=== PATIENT | male | born 1990 | race Caucasian/White ===

== ENCOUNTER → 2016-09-26 | Outpatient (CLI) | payer BC ==
[~2016-09-26] MED LIST: CIPR1TAB10 PO; HYDR-5688 PO; LRT5 PO; METR-163 PO
[2016-09-26 17:31] LABS: LYME DISEASE AB IGG NEG (NEG); LYME DISEASE AB IGM NEG (NEG)
== END | disposition home or self-care (01) ==
LOC: C.LABBC 14:54
PROVIDERS: ATTEND Physician Assistant Medical
DX: T14.8 Other injury of unspecified body region (principal); W57.XXXA Bitten or stung by nonvenomous insect and other nonvenomous arthropods, initial encounter

== ENCOUNTER → 2016-10-24 | Outpatient (CLI) | payer BC ==
[~2016-10-24] MED LIST changes: -CIPR1TAB10 PO; -HYDR-5688 PO; -METR-163 PO
--- NOTE | 2016-10-24 16:35 | DIAGNOSTIC IMAGING REPORT ---
LEFT LOWER EXT JOINT WITHOUT MRI left knee CLINICAL HISTORY: LEFT KNEE PAIN R/O MENISCUS TEAR pain TECHNIQUE: Multi axial MRI acquisition COMPARISON STUDY: None FINDINGS: Unremarkable signal characteristics the osseous structures. No bone marrow replacing process. Anterior and posterior cruciate ligaments are intact. Medial and lateral menisci are unremarkable. The articular services of all major joint compartments are within normal limits. The patellofemoral joint is within normal limits. All major ligamentous and tendinous structures are intact IMPRESSION: Negative study The above report was generated using voice recognition software. It may contain grammatical, syntax or spelling errors. Electronically signed by: Patrick Yousif M.D. 10/24/2016 4:34 PM Dictated Date/Time: 10/24/2016 4:30 PM
== END | disposition home or self-care (01) ==
LOC: C.MRIBC 15:08
PROVIDERS: ATTEND Orthopaedic Surgery
DX: M25.562 Pain in left knee (principal)

== ENCOUNTER 2017-02-03 03:13 | Emergency (ER) | payer BC ==
[~2017-02-03] VITALS: Ht 170.2 cm; Wt 81.7 kg
[2017-02-03 03:19] VITALS: Ht 170.2 cm; Wt 81.7 kg
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
[2017-02-03] MEDS ORDERED: ALUMINUM/MAGNESIUM SUSP 30 ML UDC PO STA (04:26)
[2017-02-03] MEDS ORDERED: FAMOTIDINE 20MG/102 ML D5W IV STA (04:26)
[2017-02-03 04:39] LABS: BASO % 0.3 %; BASO ABS # 0.03 K/uL (0-0.2); COMPLETE YES; EOS % 1.9 %; HEMATOCRIT 41.8 % (42-52); IG% 0.2 %; LYMPH ABS # 2.19 K/uL (1.2-3.4); MEAN CELL VOLUME 84.3 fL (80-100); MEAN CORPUSCULAR HGB CONC 35.6 g/dl (32-36); NEUT % 69.6 %; PLATELET COUNT 238 K/uL (130-400); RED BLOOD COUNT 4.96 M/uL (4.7-6.1); WHITE BLOOD COUNT 10.44 K/uL (4.8-10.8)
[2017-02-03 04:50] LABS: ALB/GLOB RATIO 1.3 (0.9-2); BUN/CREATININE RATIO 13.3 (10-20); CALCIUM 9.3 mg/dl (8.5-10.1); CREATININE 1.04 mg/dl (0.60-1.40); POTASSIUM 3.8 mmol/L (3.5-5.1)
[2017-02-03] MEDS ORDERED: SUCRALFATE 1 GM/10 ML UDC PO STA (05:48)
--- NOTE | 2017-02-03 06:40 | DIAGNOSTIC IMAGING REPORT ---
ABDOMEN 2VIEW W/PA CHEST RTN HISTORY: 26 years-old Male epigastric pain acute epigastric abdominal pain COMPARISON: None available TECHNIQUE: Frontal view of the chest with erect and supine views of the abdomen FINDINGS: The cardiac mediastinal and hilar silhouettes are within normal limits. No pneumothorax, pleural effusion or focal airspace consolidation. Bones of the chest are grossly intact. No pneumoperitoneum on the upright projection. Bowel gas pattern is nonobstructive. No urolith or fracture. There are 6 lumbar type vertebral segments. Probable phleboliths of the pelvis. IMPRESSION: 1. No acute cardiopulmonary process. 2. Nonobstructive bowel gas pattern without pneumoperitoneum. The above report was generated using voice recognition software. It may contain grammatical, syntax or spelling errors. Electronically signed by: Reji Brar M.D. 02/03/2017 6:38 AM Dictated Date/Time: 02/03/2017 6:36 AM
--- NOTE | 2017-02-03 06:45 | DIAGNOSTIC IMAGING REPORT ---
BILIARY ULTRASOUND CLINICAL HISTORY: epigastric pain COMPARISON STUDY: No previous studies for comparison. FINDINGS: The pancreas appears sonographically normal. No focal hepatic masses are visualized. There is borderline increase in hepatic echogenicity. The gallbladder appears sonographically normal. No stones are identified. The common bile duct measured between 4 and 6 mm. There is no right-sided hydronephrosis. IMPRESSION: Borderline increase in hepatic echogenicity. Otherwise normal biliary ultrasound. Ultrasonographically normal gallbladder. No ductal dilatation. Electronically signed by: Bautista Aparicio M.D. 02/03/2017 6:43 AM Dictated Date/Time: 02/03/2017 6:43 AM
[2017-02-03] MEDS ORDERED: KETOROLAC TROMETHAMINE 30 MG/ML VIAL IV STA (06:58)
[2017-02-03 07:18] VITALS: BP 126/68; PULSE 54; TEMP 36.8; O2SAT 97
[2017-02-04] MEDS ORDERED: CIPR1TAB10 PO (11:42)
[2017-02-04] MEDS ORDERED: HYDR-5688 PO (11:42)
[2017-02-04] MEDS ORDERED: METR-163 PO (11:42)
== END 2017-02-03 07:19 | disposition home or self-care (01) ==
LOC: C.EDB 03:14 → C.EDA 07:19
DX: R10.13 Epigastric pain (principal); R19.7 Diarrhea, unspecified

== ENCOUNTER 2017-02-03 20:01 | Observation (INO) | payer BC ==
[~2017-02-03] VITALS: Ht 170.2 cm; Wt 79.0 kg
[2017-02-03] MEDS ORDERED: MoRPHine SULFATE 4 MG/ML 1 ML CARP\\VIAL IV STA (20:13)
[2017-02-03] MEDS ORDERED: ONDANSETRON INJ 2 MG/ML 2 ML VIAL IV STA (20:13)
[2017-02-03] MEDS ORDERED: OPTIRAY 320 IV PRN (20:30)
[2017-02-03 20:44] LABS: MANUAL MICROSCOPIC REQUIRED? NO; REVIEW REQ? NO; URINE APPEARANCE CLOUDY (CLEAR); URINE COLOR DK YELLOW; URINE NITRITE NEG (NEG); URINE PH 5.5 (4.5-7.5); URINE SPECIFIC GRAVITY 1.023 (1.000-1.030); UROBILINOGEN NEG (NEG); ZZUR CULT IF INDIC CLEAN CATCH NO
[2017-02-03 20:46] LABS: URINE BILIRUBIN NEG (NEG)
[2017-02-03 20:54] LABS: BUN/CREATININE RATIO 8.8 (10-20); CREATININE 1.28 mg/dl (0.60-1.40); POTASSIUM 3.7 mmol/L (3.5-5.1)
--- NOTE | 2017-02-03 21:05 | DIAGNOSTIC IMAGING REPORT ---
ABDOMEN AND PELVIS CT WITH IV CONTRAST CT DOSE: 322.78 mGy.cm HISTORY: Right lower quadrant abdominal pain. TECHNIQUE: Multiaxial CT images of the abdomen and pelvis were performed following the use of intravenous contrast. A dose lowering technique was utilized adhering to the principles of ALARA. COMPARISON STUDY: None. FINDINGS: The tip of the appendix is distended up to 11 mm and there is periappendiceal fat stranding consistent with acute appendicitis. There are two appendicoliths within the appendix. No perforation or abscess identified at this time. The distended appendix is anterior to the right psoas muscle best seen on images 47 through 54. The lung bases are clear. The liver, gallbladder, pancreas, spleen, adrenal glands, and kidneys are unremarkable. No hydronephrosis. No retroperitoneal lymphadenopathy. Bladder is not well-distended but appears unremarkable. No evidence for bowel obstruction. IMPRESSION: Acute appendicitis. Electronically signed by: Douglas Benjamin M.D. 02/03/2017 9:04 PM Dictated Date/Time: 02/03/2017 8:59 PM
[2017-02-03] MEDS ORDERED: CEFOXITIN 2000MG/60 ML D5W IV STA (21:07)
[2017-02-03] MEDS ORDERED: SODIUM CHLORIDE 0.9% 1000ML 1,000 ML IV STA (21:11)
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
[2017-02-03 21:25] LABS: BASO % 0.2 %; BASO ABS # 0.01 K/uL (0-0.2); COMPLETE YES; EOS % 0.9 %; HEMATOCRIT 43.6 % (42-52); IG% 0.2 %; LYMPH % 12.1 %; LYMPH ABS # 0.53 K/uL (1.2-3.4); MEAN CELL VOLUME 85.8 fL (80-100); MEAN CORPUSCULAR HEMOGLOBIN 29.7 pg (25-34); MEAN CORPUSCULAR HGB CONC 34.6 g/dl (32-36); MEAN PLATELET VOLUME 10.2 fL (7.4-10.4); MONO % 0.5 %; NEUT % 86.1 %; PLATELET COUNT 181 K/uL (130-400); RED BLOOD COUNT 5.08 M/uL (4.7-6.1); WHITE BLOOD COUNT 4.39 K/uL (4.8-10.8)
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
[2017-02-03 22:19] VITALS: O2SAT 96
[2017-02-03] MEDS ORDERED: MIDAZOLAM HCL 1 MG/ML 2ML VIAL ONE (22:22)
[2017-02-03] MEDS ORDERED: FENTANYL CITRATE INJ 50 MCG/1 ML 2 ML VIAL ONE ×2 (22:22→23:36)
[2017-02-03] MEDS ORDERED: HYDROmorphone INJ 2 MG/ML SYR/VIAL IV PRN (22:30)
[2017-02-03] MEDS ORDERED: ONDANSETRON INJ 2 MG/ML 2 ML VIAL IV PRN (22:30)
[2017-02-03] MEDS ORDERED: LABETALOL HCL IV 5 MG/ML 20ML IV PRN (22:30)
[2017-02-03] MEDS ORDERED: KETOROLAC TROMETHAMINE 30 MG/ML VIAL IV. PRN (22:30)
[2017-02-03] MEDS ORDERED: PROMETHAZINE HCL INJ 12.5 MG in SODIUM CHLORIDE 0.9% 50ML 50 ML IV PRN (22:30)
[2017-02-03] MEDS ORDERED: ATROPINE SULFATE 0.1 MG/ML 5ML SYR IV PRN (22:30)
[2017-02-03] MEDS ORDERED: METOCLOPRAMIDE HCL INJ 5 MG/ML 2 ML VIAL ONE (22:59)
[2017-02-03] MEDS ORDERED: ROCURONIUM BROMIDE 10 MG/ML 5 ML VIAL IV ONE ×2 (22:59→23:36)
[2017-02-03] MEDS ORDERED: NEOSTIGMINE METHYLSULFATE 5 MG/5 ML SYR ONE (22:59)
[2017-02-03] MEDS ORDERED: GLYCOPYRROLATE INJ 0.2 MG/ML VIAL ONE (22:59)
[2017-02-03] MEDS ORDERED: ONDANSETRON INJ 2 MG/ML 2 ML VIAL ONE (22:59)
[2017-02-03] MEDS ORDERED: PROPOFOL IV EMULSION 10 MG/ML 20 ML VIAL IV ONE (22:59)
[2017-02-03] MEDS ORDERED: BUPIVACAINE/EPINEPHRINE 0.25% 1:200,000 30 ML VIAL ONE (23:06)
[2017-02-03] MEDS ORDERED: IV FLUIDS COMPLETED PRN (23:45)
[2017-02-04] VITALS (8 sets, daily range): BP systolic 96–112; BP diastolic 55–65; PULSE 62–118; TEMP 36.7–39.3; O2SAT 91–98; Ht 170.2 cm; Wt 79.0 kg
[2017-02-04] MEDS ORDERED: MoRPHine SULFATE 2 MG/ML CARP IV PRN
[2017-02-04] MEDS ORDERED: ONDANSETRON INJ 2 MG/ML 2 ML VIAL IV PRN
[2017-02-04] MEDS ORDERED: MoRPHine SULFATE 4 MG/ML 1 ML CARP\\VIAL IV PRN
[2017-02-04] MEDS ORDERED: HYDROCODONE/ACETAMOPHEN 5/325MG TAB PO PRN ×2
[2017-02-04] MEDS ORDERED: KETOROLAC TROMETHAMINE 30 MG/ML VIAL IV. PRN
--- NOTE | 2017-02-04 00:02 | [facility] Operative Report ---
Operative Report Operative Date Feb 03, 2017. Pre-Operative Diagnosis Acute Appendicitis Post-Operative Diagnosis acute appendicitis Procedure(s) Performed Laparoscopic Appendectomy Surgeon Dr. Rajan Tomato Paste Maker Surgeon(s) none Estimated Blood Loss 5ML Findings acute appendicitis Specimens Permanent Specimens A. Appendix Anesthesia get Complication(s) None Disposition Recovery Room / PACU Description of Procedure After informed consent was obtained the patient was taken to the operating room and placed in a supine position. After successful intubation the left arm was tucked. We tried to place a Peña catheter but did not obtain any urine so we removed the catheter. We then shaved the abdomen and sterilely prepped and draped in usual fashion. A periumbilical incision was made with an 11 blade scalpel and carried down through the soft tissue using electrocautery. The anterior rectus fascia was opened using electrocautery and 2 #0 Vicryl stay sutures were placed. Peritoneum was entered using blunt finger penetration and a finger sweep was performed. A 12 mm Ricketts trocar was placed and the abdomen was insufflated to 18 mmHg. The laparoscope was inserted and the abdomen was examined 360. No gross abnormalities were seen. A suprapubic 5 mm port and a left lower quadrant 12 mm port were placed under direct vision. The patient was placed in a Trendelenburg position and slightly airplaned to the left. As we examined the right lower quadrant we found that the appendix was retrocecal. We able to roll the cecum superiorly and identified what appeared to be an infarcted appendix. We able to grab it at its base and elevate it and using primarily blunt dissection free it up from surrounding structures. The base of the appendix looked normal. I was able used a [place] dissector to create a small window in the mesentery of the appendix. A SAKINA Brown cartridge stapler was then used to transect the appendix at its base with the cecum. I used a second firing of the same stapler to take down the mesentery of the appendix. It was placed into an Endo Catch bag. The staple lines appeared to be intact and there was adequate hemostasis. I thoroughly irrigated the pelvis and right lower quadrant. I ran the small bowel backwards from the terminal ileum for about 8 feet all of which was normal. I looked around the abdomen 1 final time again showing no other abnormalities other than a small right inguinal hernia with no incarceration. We remove the appendix and all the trochars and desufflated the abdomen. The fascia of the camera port as well as the left lower quadrant fascia was closed using 0 Vicryl in [id number] fashion. The wounds were all irrigated and closed using 4-0 Monocryl. Marcaine was injected around the incisions for postoperative analgesia and skin glue used as a dressing. The patient was awakened extubated and transferred to recovery in stable condition I attest to the content of the Intraoperative Record and any orders documented therein. Any exceptions are noted below.
--- NOTE | 2017-02-04 00:42 | Anesthesiology Progress Note ---
Anesthesia Post Op Note Date & Time Feb 04, 2017 at 00:41 Vital Signs Pain Intensity: 0 Vital Signs Past 12 Hours Date Time Temp Pulse Resp B/P (MAP) Pulse Ox O2 Delivery O2 Flow Rate FiO2 02/04/17 00:19 109 16 100 Oxymask 3 02/04/17 00:19 109 16 02/04/17 00:16 151/81 (109) 02/04/17 00:14 110 14 02/04/17 00:14 109 14 100 Oxymask 6 02/04/17 00:11 124/92 (97) 02/04/17 00:09 121 16 100 Oxymask 8 02/04/17 00:09 115 18 02/04/17 00:06 140/79 (95) 02/04/17 00:04 106 20 02/04/17 00:04 106 18 99 02/04/17 00:01 137/92 (102) 02/03/17 23:59 117 16 137/79 (104) 93 02/03/17 23:59 115 18 02/03/17 23:56 38.2 123 32 137/79 94 Oxymask 9 02/03/17 22:19 110 20 133/66 96 Room Air 02/03/17 21:27 110 20 143/74 95 Room Air 02/03/17 21:26 110 20 142/75 96 Room Air 02/03/17 21:07 99 Room Air 02/03/17 20:58 112 02/03/17 20:04 38.2 65 20 117/76 99 Room Air Notes Mental Status: alert / awake / arousable, participated in evaluation Pt Amnestic to Procedure: Yes Nausea / Vomiting: adequately controlled Pain: adequately controlled Airway Patency, RR, SpO2: stable & adequate BP & HR: stable & adequate Hydration State: stable & adequate Anesthetic Complications: no major complications apparent
[2017-02-04] MEDS: IBUPROFEN 600 MG TAB PO PRN ×2 (01:06→13:44)
[2017-02-04] MEDS: LACTATED RINGER'S 1000ML 1,000 ML IV SCH ×2 (03:46→10:26)
[2017-02-04] MEDS ORDERED: CEFOXITIN IV 2,000 MG in DEXTROSE 5% 50ML 50 ML IV SCH (06:00)
[2017-02-04 06:48] LABS: HEMATOCRIT 38.3 % (42-52); MEAN CELL VOLUME 86.3 fL (80-100); MEAN CORPUSCULAR HEMOGLOBIN 29.3 pg (25-34); MEAN CORPUSCULAR HGB CONC 33.9 g/dl (32-36); MEAN PLATELET VOLUME 10.5 fL (7.4-10.4); PLATELET COUNT 150 K/uL (130-400); RED BLOOD COUNT 4.44 M/uL (4.7-6.1); WHITE BLOOD COUNT 12.83 K/uL (4.8-10.8)
[2017-02-04 07:20] LABS: BASO % 0.2 %; BASO ABS # 0.02 K/uL (0-0.2); COMPLETE YES; EOS % 0.1 %; IG% 1.6 %; LYMPH % 2.1 %; LYMPH ABS # 0.27 K/uL (1.2-3.4); MONO % 3.2 %; NEUT % 92.8 %; VACUOLIZATION 1+
[2017-02-04 07:21] LABS: BUN/CREATININE RATIO 5.5 (10-20); CALCIUM 8.4 mg/dl (8.5-10.1); CREATININE 1.93 mg/dl (0.60-1.40); POTASSIUM 3.8 mmol/L (3.5-5.1)
--- NOTE | 2017-02-04 11:23 | Surgery Progress Note ---
Surgery Progress Note Date of Service Feb 04, 2017. Subjective Post OP Day: 1 expected sorness but overall feeling well. lara liquids. pre-op pain gone. Objective Vital Signs: Date Time Temp Pulse Resp B/P (MAP) Pulse Ox O2 Delivery O2 Flow Rate FiO2 02/04/17 08:00 Room Air 02/04/17 07:41 36.7 62 16 98/55 (69) 98 Room Air 02/04/17 03:54 37.4 100 18 101/62 (75) 92 Room Air 02/04/17 02:50 37.5 109 16 96/58 (71) 91 Room Air 02/04/17 01:50 38.4 111 18 98/59 (72) 91 Room Air 02/04/17 01:20 39.3 118 19 96/56 (69) 92 Nasal Cannula 2.0 02/04/17 00:50 39.0 114 20 112/62 (79) 94 Nasal Cannula 2.0 02/04/17 00:50 Room Air 02/04/17 00:50 37.5 109 16 96/58 Room Air 02/04/17 00:50 Room Air 02/04/17 00:41 158/81 (94) 02/04/17 00:40 112 18 02/04/17 00:40 112 18 92 Nasal Cannula 2 02/04/17 00:36 39.3 154/86 (98) 02/04/17 00:35 114 16 02/04/17 00:35 114 16 92 02/04/17 00:32 131/109 (116) 02/04/17 00:30 124 18 92 Oxymask 3 02/04/17 00:30 123 18 02/04/17 00:26 146/89 (102) 02/04/17 00:25 111 16 02/04/17 00:25 109 16 99 Oxymask 3 02/04/17 00:21 141/82 (94) 02/04/17 00:20 110 18 02/04/17 00:20 38.7 109 18 100 02/04/17 00:19 109 16 100 Oxymask 3 02/04/17 00:19 109 16 02/04/17 00:16 151/81 (109) 02/04/17 00:14 110 14 02/04/17 00:14 109 14 100 Oxymask 6 02/04/17 00:11 124/92 (97) 02/04/17 00:09 121 16 100 Oxymask 8 02/04/17 00:09 115 18 02/04/17 00:06 140/79 (95) 02/04/17 00:04 106 20 02/04/17 00:04 106 18 99 02/04/17 00:01 137/92 (102) 02/03/17 23:59 117 16 137/79 (104) 93 02/03/17 23:59 115 18 02/03/17 23:56 38.2 123 32 137/79 94 Oxymask 9 02/03/17 22:19 110 20 133/66 96 Room Air 02/03/17 21:27 110 20 143/74 95 Room Air 02/03/17 21:26 110 20 142/75 96 Room Air 02/03/17 21:07 99 Room Air 02/03/17 20:58 112 02/03/17 20:04 38.2 65 20 117/76 99 Room Air General Appearance: no apparent distress Respiratory/Chest: no respiratory distress, no accessory muscle use Abdomen: non distended, soft Incision(s): clean, dry, intact Laboratory Results: Results Past 24 Hours Test 02/03/17 20:25 02/04/17 06:34 02/04/17 06:35 Range/Units White Blood Count 4.39 12.83 4.8-10.8 K/uL Red Blood Count 5.08 4.44 4.7-6.1 M/uL Hemoglobin 15.1 13.0 14.0-18.0 g/dL Hematocrit 43.6 38.3 42-52 % Mean Corpuscular Volume 85.8 86.3 80-100 fL Mean Corpuscular Hemoglobin 29.7 29.3 25-34 pg Mean Corpuscular Hemoglobin Concent 34.6 33.9 32-36 g/dl Platelet Count 181 150 130-400 K/uL Mean Platelet Volume 10.2 10.5 7.4-10.4 fL Neutrophils (%) (Auto) 86.1 92.8 % Lymphocytes (%) (Auto) 12.1 2.1 % Monocytes (%) (Auto) 0.5 3.2 % Eosinophils (%) (Auto) 0.9 0.1 % Basophils (%) (Auto) 0.2 0.2 % Neutrophils # (Auto) 3.78 11.91 1.4-6.5 K/uL Lymphocytes # (Auto) 0.53 0.27 1.2-3.4 K/uL Monocytes # (Auto) 0.02 0.41 0.11-0.59 K/uL Eosinophils # (Auto) 0.04 0.01 0-0.5 K/uL Basophils # (Auto) 0.01 0.02 0-0.2 K/uL RDW Standard Deviation 40.3 41.4 36.4-46.3 fL RDW Coefficient of Variation 12.7 13.1 11.5-14.5 % Immature Granulocyte % (Auto) 0.2 1.6 % Immature Granulocyte # (Auto) 0.01 0.21 0.00-0.02 K/uL Urine Color DK YELLOW Urine Appearance CLOUDY CLEAR Urine pH 5.5 4.5-7.5 Urine Specific Sutton 1.023 1.000-1.030 Urine Protein NEG NEG Urine Glucose (UA) NEG NEG Urine Ketones TRACE NEG Urine Occult Blood NEG NEG Urine Nitrite NEG NEG Urine Bilirubin NEG NEG Urine Urobilinogen NEG NEG Urine Leukocyte Esterase TRACE NEG Urine WBC (Auto) 1-5 0-5 /hpf Urine RBC (Auto) 0-4 0-4 /hpf Urine Hyaline Casts (Auto) 1-5 0-5 /lpf Urine Epithelial Cells (Auto) 5-10 0-5 /lpf Urine Bacteria (Auto) NEG NEG Sodium Level 140 139 136-145 mmol/L Potassium Level 3.7 3.8 3.5-5.1 mmol/L Chloride Level 107 108 98-107 mmol/L Carbon Dioxide Level 26 24 21-32 mmol/L Anion Gap 7.0 7.0 3-11 mmol/L Blood Urea Nitrogen 11 11 7-18 mg/dl Creatinine 1.28 1.93 0.60-1.40 mg/dl Est Creatinine Clear Calc Drug Dose 82.5 54.7 ml/min Estimated GFR () 89.6 54.5 Estimated GFR (Non- 77.3 47.0 BUN/Creatinine Ratio 8.8 5.5 10-20 Random Glucose 89 136 70-99 mg/dl Calcium Level 9.0 8.4 8.5-10.1 mg/dl Total Bilirubin 1.2 0.2-1 mg/dl Direct Bilirubin 0.3 0-0.2 mg/dl Aspartate Amino Transf (AST/SGOT) 19 15-37 U/L Alanine Aminotransferase (ALT/SGPT) 41 12-78 U/L Alkaline Phosphatase 80 45-117 U/L Total Protein 7.3 6.4-8.2 gm/dl Albumin 4.0 3.4-5.0 gm/dl Toxic Vacuolation 1+ Microbiology Results 02/03/17 Blood Culture, Received Pending 02/03/17 Blood Culture, Received Pending Assessment & Plan POD 1 doing fairly well will get regular lunch and re-eval after lunch for possible d/c later today home on antibiotics instructions given.
[2017-02-04] MEDS ORDERED: CIPR1TAB10 PO (11:42)
[2017-02-04] MEDS ORDERED: HYDR-5688 PO (11:42)
[2017-02-04] MEDS ORDERED: METR-163 PO (11:42)
--- NOTE | 2017-02-04 11:44 | Discharge Instructions ---
Discharge Instructions Date of Service Feb 04, 2017. Admission Reason for Admission: Appendicitis, Acute Discharge Discharge Diagnosis / Problem: Appendicitis, Acute Discharge Goals Goal(s): Decrease discomfort, Improve function Activity Recommendations Activity Limitations: as noted below Lifting Limitations: no more than 10 pounds Exercise/Sports Limitations: until after follow-up appointment May Resume Sexual Activity: after follow-up appointment Shower/Bathe: tomorrow Driving or Machine Use: resume 1 day after discharge . Instructions / Follow-Up Instructions / Follow-Up Please follow-up with Dr. Rajan in the office in 1-2 weeks. Please call the office at [phone] to make an appointment. Please call the office with any questions or concerns. Current Hospital Diet Patient's current hospital diet: Regular Diet Discharge Diet Recommended Diet: Regular Diet Procedures Procedures Performed: Laparoscopic Appendectomy Pending Studies Studies pending at discharge: yes List of pending studies: Pathology report. Medical Emergencies . Who to Call and When: Medical Emergencies: If at any time you feel your situation is an emergency, please call 911 immediately. . Non-Emergent Contact Non-Emergency issues call your: Primary Care Provider, Surgeon Call Non-Emergent contact if: temperature is above 101.5, your pain is not controlled, wound has increased drainage, wound has increased redness . "Provider Documentation" section prepared by Samanta Ingram. . VTE Core Measure Inpt VTE Proph given/why not?: SCD's [place] Drug Monitoring Program Search Results: patient reviewed within database, no issues identified
--- NOTE | 2017-02-04 18:39 | Pharmacy Progress Note ---
ED Pharmacist Culture FollowUp Date of Service: Feb 04, 2017. Patient seen yesterday for acute appendicitis. Went for surgery and was discharged today. Only one of the preliminary blood cultures is available. Per Dr. Martin, will wait for the other blood culture to call patient/and or determine if a contaminant. Will pass on information to charge nurse and re- evaluate myself tomorrow.
--- NOTE | 2017-02-09 11:22 | Discharge Summary ---
Discharge Summary Date of Service Feb 09, 2017. Admission Date/Reason Feb 03, 2017 at 22:07 Appendicitis, Acute. Discharge Date/Disposition Feb 04, 2017 Home Diagnosis Principal Diagnosis: Acute Appendicitis Procedure(s) Performed Laparoscopic Appendectomy Medication Reconciliation New Medications: Ciprofloxacin Hcl (Cipro) 500 Mg Tab 500 MG PO BID for 7 Days, #14 TAB Metronidazole (Flagyl) 500 Mg Tab 500 MG PO TID for 7 Days, #21 TAB Admission Physical Exam As per Admitting History & Physical. Hospital Course Mr. Willett is a 26-year-old male who presented to [facility] ED after developing severe abdominal pain. Patient states that pain was generalized at first and then localized to right lower quadrant. CT imaging revealed acute appendicitis. Patient was taken to OR for Laparoscopic Appendectomy with Dr. Star Rajan Post-operatively, patient did well. Pain was well controlled. Patient's diet was advanced at lunchtime on POD #1, which he tolerated well. Patient was discharged after lunch with both verbal and written instructions. Patient was discharged with outpatient antibiotics as well as a note for work. Patient to return to see Dr. Rajan in the general surgery clinic in 1-2 weeks. Discharge Instructions Please refer to the electronic Patient Visit Report (Discharge Instructions) for additional information.
== END 2017-02-04 14:48 | disposition home or self-care (01) ==
LOC: C.EDB 20:02 → C.MSW 22:07 → ENRESERV 22:24
PROVIDERS: ADMIT Surgery; ATTEND Surgery
DX: K35.80 Unspecified acute appendicitis (principal); Z68.27 Body mass index [BMI] 27.0-27.9, adult